=== PATIENT | female | born 1985 | race Caucasian/White ===

== ENCOUNTER 2018-10-19 17:24 | Emergency (ER) | payer SELFPAY ==
[~2018-10-19] VITALS: Ht 180.3 cm; Wt 68.0 kg
[2018-10-19] MEDS ORDERED: ASPIRIN325 MG PO (17:44)
[2018-10-19] MEDS ORDERED: PENICILLIN V P500 MG PO (19:08)
== END 2018-10-19 19:24 | disposition home or self-care (01) ==
LOC: ED 17:24
DX: K04.7 Periapical abscess without sinus (principal); I10 Essential (primary) hypertension; F32.9 Major depressive disorder, single episode, unspecified; Z79.82 Long term (current) use of aspirin
CPT/HCPCS: 99282

== ENCOUNTER 2025-03-29 07:16 | Inpatient (IN) | payer SELFPAY ==
[~2025-03-29 07:16] MED LIST: ASPIRIN325 MG PO; PENICILLIN V P500 MG PO
[2025-03-29] MEDS ORDERED: LIDOCAINE HCL 1% 30 ML SDV INJ SCH (07:45)
[2025-03-29] MEDS ORDERED: SOD+POT BICARB/CITRIC ACID 2 EA TABLET.EFF ONE (07:46)
[2025-03-29] MEDS ORDERED: LIDOCAINE HCL 1% 30 ML SDV ONE (07:47)
[2025-03-29] MEDS ORDERED: LACTATED RINGER'S 1,000 ML IV SCH (08:00)
[2025-03-29] MEDS ORDERED: OXYTOCIN 10 UNITS/ML VIAL IM SCH (08:00)
[2025-03-29] MEDS ORDERED: CALCIUM CARBONATE 500 MG CHEW PO PRN (08:00)
[2025-03-29] MEDS ORDERED: MAGNESIUM HYDROXIDE/AL HYDROX 30 ML CUP PO PRN (08:00)
[2025-03-29] MEDS ORDERED: IBUPROFEN 800 MG TAB PO PRN (08:15)
[2025-03-29] MEDS ORDERED: LIDOCAINE 2% VISCOUS 6 ML SYR TOP ONE (08:30)
[2025-03-29] MEDS ORDERED: HYDROCORTISONE ACETATE 25 MG SUPP PR PRN (08:30)
[2025-03-29] MEDS ORDERED: ACETAMINOPHEN 325 MG TAB PO PRN (08:30)
[2025-03-29] MEDS ORDERED: BENZOCAINE 60 ML AEROSOL TOP PRN (08:30)
[2025-03-29] MEDS ORDERED: OXYTOCIN/0.9 % SODIUM CHLORIDE 500 ML IV SCH (08:30)
[2025-03-29] MEDS ORDERED: MAGNESIUM HYDROXIDE 30 ML UDC PO PRN (08:30)
[2025-03-29] MEDS ORDERED: IBUPROFEN 600 MG TAB PO PRN (08:30)
[2025-03-29] MEDS ORDERED: WITCH HAZEL/GLYCERIN 1 EA PAD TOP PRN (08:30)
[2025-03-29] MEDS ORDERED: OXYTOCIN 10 UNITS/ML VIAL IM ONE (08:45)
[2025-03-29 08:55] LABS: HEMATOCRIT 39.8 % (34.1-44.9); HEMOGLOBIN 12.7 g/dL (11.2-15.7); MCH 26.5 PG (25.6-32.2); MCHC 31.9 g/dL (32.2-35.5); MCV 82.9 fL (79.4-94.8); RBC 4.8 M/uL (3.93-5.22)
[2025-03-29] MEDS ORDERED: SENNOSIDES/DOCUSATE 1 EA TAB PO SCH (09:00)
[2025-03-29 09:32] LABS: ABO O; ANTIBODY SCREEN NEGATIVE; RH POSITIVE
[2025-03-29] MEDS ORDERED: miSOPROStoL 200 MCG TAB PR ONE (10:00)
[2025-03-29 12:25] LABS: HEMATOCRIT 36.3 % (34.1-44.9); HEMOGLOBIN 11.8 g/dL (11.2-15.7); MCH 26.8 PG (25.6-32.2); MCHC 32.5 g/dL (32.2-35.5); MCV 82.5 fL (79.4-94.8); RBC 4.4 M/uL (3.93-5.22)
[2025-03-29 12:25] LABS: ALBUMIN 2.6 g/dL (3.4-5.0); ALBUMIN/GLOBULIN RATIO 0.62 (1.1-2.4); ANION GAP 14.6 (7-21); BILIRUBIN, TOTAL 0.5 mg/dL (0.2-1.0); BUN/CREATININE RATIO 7.95 (6.0-28.6); CALCIUM 8.2 mg/dL (8.5-10.1); CREATININE, SERUM 0.88 mg/dL (0.55-1.02); POTASSIUM 3.6 mmol/L (3.5-5.1); PROTEIN, TOTAL 6.8 g/dL (6.4-8.2)
[2025-03-29 12:32] LABS: AMPHETAMINES, URINE POSITIVE (NEGATIVE); BARBITURATES, URINE NEGATIVE (NEGATIVE); BENZODIAZEPINE, URINE NEGATIVE (NEGATIVE); BUPRENORPHINE, URINE NEGATIVE (NEGATIVE); CANNABINOID, URINE NEGATIVE (NEGATIVE); COCAINE, URINE NEGATIVE (NEGATIVE); ECSTASY, URINE POSITIVE (NEGATIVE); FENTANYL, URINE NEGATIVE (NEGATIVE); METHADONE, URINE NEGATIVE (NEGATIVE); OPIATES, URINE NEGATIVE (NEGATIVE); OXYCODONE, URINE NEGATIVE (NEGATIVE); PHENCYCLIDINE, URINE NEGATIVE (NEGATIVE)
[2025-03-29 13:40] LABS: ALBUMIN 2.4 g/dL (3.4-5.0); ALBUMIN/GLOBULIN RATIO 0.6 (1.1-2.4); BILIRUBIN, TOTAL 0.5 mg/dL (0.2-1.0); BUN/CREATININE RATIO 9.75 (6.0-28.6); CALCIUM 8.3 mg/dL (8.5-10.1); CREATININE, SERUM 0.82 mg/dL (0.55-1.02); PROTEIN, TOTAL 6.4 g/dL (6.4-8.2)
[2025-03-30 08:40] LABS: HEPATITIS B SURFACE ANTIBODY <3.10 IU/L (())
[2025-03-30 08:51] LABS: HEPATITIS B SURFACE ANTIGEN Negative (Negative)
--- NOTE | 2025-03-30 11:38 | PR ---
[facility] [address] [place] [address] [place], [place] [address] Signed PP Progress Notes Datetime Report Generated by CPN: 03/30/2025 11:38 SUBJECTIVE: [id number] Pain: Within Normal Limits Nausea/Vomiting: Denies Flatus: Yes Vital Signs: [id number] EXAM: Ongoing Cardiovascular: Normal Respiratory: Normal Abdomen/Uterus: Normal Lochia: Normal Vulva/Perineum: Normal Breasts: Normal CVA Tenderness: Normal Extremities: Normal IMPRESSION/PLAN/PROCEDURES: [id number] Impression: Normal Progression Plan: Continue Present Management Progress Notes: Initital tox screening came back positive for MDMA and meth, confirmation pending. Pain well controlled. Minimal bleeding. Baby to stay admitted until tomorrow, patietn woudl liek to stay admitted as well. Signing Physician: Justine Villarreal MD Copies: ~ *Electronically Signed* 03/30/25 1138 JUSTINE VILLARREAL MD PATIENT NAME: RALPH MOSES PROGRESS NOTE DATE OF : 87 PHYSICIAN: JUSTINE VILLARREAL MD RPT #: [id number] REPORT IS CONFIDENTIAL AND NOT TO BE RELEASED WITHOUT AUTHORIZATION
[2025-03-30 12:34] LABS: RUBELLA ANTIBODY IGG 25.9 IU/mL (())
[2025-03-30 15:29] LABS: HEPATITIS C AB CIA INTERP Negative (Negative); HEPATITIS C ANTIBODY CIA INDEX 0.09 IV (())
[2025-03-30 15:30] LABS: HIV 1,2 COMBO ANTIGEN/ANTIBODY Negative (Negative)
[2025-03-31 05:57] LABS: TREPONEMA PALLIDUM (VDRL),SER Non Reactive (Non Reactive)
== END 2025-03-31 10:47 | disposition home or self-care (01) | DRG 807 ==
LOC: FBCO 07:16 → FBC 07:29 → FBCO 07:38 → FBC 07:58
PROVIDERS: ADMIT Obstetrics & Gynecology; ATTEND Obstetrics & Gynecology
PROC: 10E0XZZ Delivery of Products of Conception, External Approach (ICD-10-PCS; principal; 2025-03-29)
PROC: 0HQ9XZZ Repair Perineum Skin, External Approach (ICD-10-PCS; 2025-03-29)
DX: O62.3 Precipitate labor (principal); Z37.0 Single live birth; Z3A.40 40 weeks gestation of pregnancy; O77.0 Labor and delivery complicated by meconium in amniotic fluid; O69.81X0 Labor and delivery complicated by cord around neck, without compression, not applicable or unspecified; O70.0 First degree perineal laceration during delivery; Z87.891 Personal history of nicotine dependence
CPT/HCPCS: 36415; 80053; 80307; 82565; 83615; 84550; 85027; 85060; 86592; 86706; 86762; 86803; 86850; 86900; 86901; 87088; 87340; A9270; J2590